=== PATIENT | male | born 1970 | race Caucasian/White ===

== ENCOUNTER 2019-05-13 13:56 | Emergency (ER) | payer OTHER ==
--- NOTE | 2019-05-13 14:09 | ED Physician Documentation ---
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 He was having trouble with his right knee last all day after physical therapy. Today he was at work and kind of had to bend and twist a little bit and developed medial knee pain especially with extension and walking. No other injuries. No fall.) Review of Systems Constitutional: reports: Reviewed and negative Throat: reports: Reviewed and negative Cardiac: reports: Reviewed and negative PD ED PE NORMAL - Vitals Vital signs reviewed: Yes - General General: Alert and oriented X 3, No acute distress - Extremities Extremities: Other (His gait is normal, there is no limp. There is potentially a very small effusion of the right knee. There is no bony tenderness or limited range of motion. He has pain but not laxity with MCL testing. The remainder of his ligaments are without laxity or pain. Borderline positive grind testing.) - Neuro Neuro: Alert and oriented X 3, Normal speech PD MEDICAL DECISION MAKING - ED course ED course: 48-year-old gentleman with a knee injury, most consistent with an MCL sprain. There is no evidence or indication of a bony injury and therefore x-rays are not obtained today. He declined a splint. Departure - Departure Disposition: 01 Home, Self Care Clinical Impression: MCL sprain of right knee Qualifiers: Encounter type: initial encounter Qualified Code(s): S83.411A - Sprain of medial collateral ligament of right knee, initial encounter Condition: Good Record reviewed to determine appropriate education?: Yes Instructions: ED Sprain Knee Comments: Ibuprofen as needed for pain, return for new or worsening symptoms. Baby it a little bit. Follow-up with your doctor in a week if not better.
[2019-05-13 14:11] VITALS: BP 157/89
== END 2019-05-13 14:12 | disposition home or self-care (01) ==
LOC: ED 13:56
DX: S83.411A Sprain of medial collateral ligament of right knee, initial encounter (principal); X50.1XXA Overexertion from prolonged static or awkward postures, initial encounter; Y93.89 Activity, other specified; Y92.89 Other specified places as the place of occurrence of the external cause; Y99.0 Civilian activity done for income or pay
CPT/HCPCS: 1040M; 99281; 99282